=== PATIENT | male | born 1975 | race Native Hawaiian/Other Pacific Islander ===

== ENCOUNTER 2016-09-12 02:27 | Emergency (ER) | payer SELFPAY ==
[2016-09-12 02:40] VITALS: BP 126/89
[2016-09-12] MEDS ORDERED: BENADRYL PO ONE (04:59)
--- NOTE | 2016-09-12 05:11 | Emergency Department Report ---
HPI - General Chief Complaint: Neuro Symptoms/Deficit Time Seen by Provider: 09/12/16 04:39 - HPI HPI: he is a 41-year-old male with no medical history of any conditions presents with his Green[place]ic-speaking daughter to ED complaining of inability to sleep for the past past week. Patient is Turkmen with mild understanding of Green[place]ic. Patient states last week Monday he could also sleep and only is able to obtain wanted to sleep and wakes up for the rest of the night and cannot go back to sleep. Patient's denies any recent changes activity in the home. 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 Patient denies taking any new medications. Patient denies fever/chills/nausea/dizziness/headache/blurred vision/chest pain/ shortness of breath or any other problems. ED Past Medical Hx - Past Medical History Previous Medical History?: No - Surgical History Past Surgical History?: No - Social History Smoking Status: Never Smoker Substance Use Type: None - Medications Home Medications: Home Medications Medication Instructions Recorded Confirmed Last Taken Type diphenhydrAMINE [Benadryl CAP] 50 mg PO QHS #10 capsule 09/12/16 Unknown Rx ED Review of Systems ROS: Stated complaint: INSOMNIA Other details as noted in HPI Constitutional: denies: chills, fever Eyes: denies: eye pain, eye discharge, vision change ENT: denies: ear pain, throat pain Respiratory: denies: cough, shortness of breath, wheezing Cardiovascular: denies: chest pain, palpitations Endocrine: no symptoms reported Gastrointestinal: denies: abdominal pain, nausea, vomiting, diarrhea Genitourinary: denies: urgency, dysuria, frequency, hematuria, testicular pain, testicular mass Musculoskeletal: denies: back pain, joint swelling, arthralgia Skin: denies: rash, lesions Neurological: denies: headache, weakness, numbness, paresthesias, confusion, abnormal gait Psychiatric: denies: anxiety, depression Hematological/Lymphatic: denies: easy bleeding, easy bruising Physical Exam - Physical Exam Vital Signs: Vital Signs 09/12/16 02:33 Temperature 98.1 F Pulse Rate 78 Respiratory 16 Rate Blood Pressure 126/89 O2 Sat by Pulse 96 Oximetry Physical Exam: GENERAL: Alert and oriented x3, no apparent distress, Normal Gait, atraumatic. HEAD: Head is normocephalic and a-traumatic. EYES: Extra ocular muscles are intact. Pupils are equal, round, and reactive to light and accommodation. NECK: Supple. Non edematous, No carotid bruits. No lymphadenopathy or thyromegaly. LUNGS: Symetrical with respiration, No wheezing, no rales or crackles, CTAB. HEART: S1, S2 present, regular rate and rhythm without murmur, no rubs, no gallops. ABDOMEN: No organomegaly was noted,Positive bowel sounds, soft, and non- distended. . Nontender to palpation on all Quadrants, NO CVA tenderness. EXTREMITIES/MUSCULOSKELETAL: No cyanosis, clubbing, rash, lesions or edema. Full ROM bilaterally. NEUROLOGIC: No focal Deficit, Cranial nerves II through XII are grossly intact. No loss of sensation, PSYCHIATRIC: Mood is congruent with affect, denies suicidal or homicidal ideations. SKIN: Warm and dry, No lesions, No ulceration or induration present. ED Course Vital Signs 09/12/16 02:33 Temperature 98.1 F Pulse Rate 78 Respiratory 16 Rate Blood Pressure 126/89 O2 Sat by Pulse 96 Oximetry ED Medical Decision Making - Medical Decision Making History of mouth presents with insomnia. ED course: Patient received 50 mg of Benadryl. Discussed with patient to reduce stress in home. Discussed the patient to take ksfd-ity-cobcfid medications such as melatonin, Benadryl that helps with sleeping. Discussed the patient cannot take medication to help with sleep without finding not the cause of inability to stay asleep. Discussed referrals to primary care as well as therapy specialist. Patient states he understands and will follow up as needed. Discussed with the patient to following: You may also use xlse-gsq-[id number] medications such as 1. Melatonin 2. Doxylamine succinate Changes medications as directed on the box. Make an appointment soon see a therapist to rule out underlying cause of insomnia. Vital signs stable. Patient is in no acute restraint distress. Patient has no neurological deficit. Critical care attestation.: If time is entered above; I have spent that time in minutes in the direct care of this critically ill patient, excluding procedure time. ED Disposition Clinical Impression: Insomnia Qualifiers: Insomnia type: unspecified Qualified Code(s): G47.00 - Insomnia, unspecified Disposition: DISCHARGED TO HOME OR SELFCARE Is pt being admited?: No Does the pt Need Aspirin: No Condition: Stable Instructions: Insomnia (ED), Anxiety (ED) Additional Instructions: You may also use igpr-xul-bqqhilh medications such as 1. Melatonin 2. Doxylamine succinate Changes medications as directed on the box. Make an appointment soon see a therapist to rule out underlying cause of insomnia. Prescriptions: diphenhydrAMINE [Benadryl CAP] 50 mg PO QHS #10 capsule Referrals: PRIMARY CARE, [Primary Care Provider] - 3-5 Days ROB HOLLIS MD [Staff Physician] - 3-5 Days ROSA ROQUE MD [Referring] - 3-5 Days MIKA VARGHESE MD [Referring] - 3-5 Days JOSE ANGEL MONTELONGO MD [Referring] - 3-[address] [facility] [Outside] - 3-5 Days Forms: Accompanied Note, Work/School Release Form(ED) Time of Disposition: 05:17
== END 2016-09-12 05:32 | disposition home or self-care (01) ==
LOC: ED 02:27
DX: G47.00 Insomnia, unspecified (principal)
CPT/HCPCS: 99282